=== PATIENT | female | born 1980 | race African-American/Black ===

== ENCOUNTER → 2016-12-31 | Outpatient (CLI) | payer OTHER ==
[~2016-12-31] MED LIST: NORCO 5-325 TA1 EACH PO; NORTRIPTYLINE H10 M2 PO; PHENERGAN 25 MG25 M1 PO; PREDNISONE50 MG PO; TRAMADOL 50 MG50 MG PO; YASMIN 28 TABL1 EACH PO; ZOFRAN4 MG PO
== END ==
LOC: CAT 15:20
DX: J32.1 Chronic frontal sinusitis (principal); J32.2 Chronic ethmoidal sinusitis

== ENCOUNTER → 2021-08-14 | Outpatient (CLI) | payer OTHER | LOC: ULTRA 13:04 | PROVIDERS: ATTEND Nurse Practitioner | DX: K76.0 Fatty (change of) liver, not elsewhere classified (principal); R11.2 Nausea with vomiting, unspecified; R16.0 Hepatomegaly, not elsewhere classified ==